=== PATIENT | male | born 1960 | race Caucasian/White ===

== ENCOUNTER 2017-05-21 13:20 | Outpatient (CLI) | payer BC, MEDICARE | END 2017-05-21 13:21 | disposition home or self-care (01) | LOC: BURLAB 13:20 | PROVIDERS: ATTEND Internal Medicine Gastroenterology | DX: R63.4 Abnormal weight loss (principal) | CPT/HCPCS: 36415; 82565 ==

== ENCOUNTER 2017-05-25 07:53 | Outpatient (CLI) | payer BC, MEDICARE ==
--- NOTE | 2017-05-25 22:52 | CT ---
CT ABDOMEN AND PELVIS WITH CONTRAST 05/25/[address] of the abdomen and pelvis was performed and compared with the prior study of 11/08/16 done at [facility]. Axial slices were acquired after giving oral and IV contrast, then coronal and s agittal reconstructions were done afterwards. The lung bases are clear. The liver and spleen were unremarkable in appearance. The pancreas is some what atrophic and contains a few calcifications within it. This could be related to the diagnosis of chronic pancreatitis. The gallbladder wall enhances quite a bit, but no stones were appreciated wit hin it and there is no stranding around the gallbladder. It is somewhat similar in appearance to the prior study. No mass or hydronephrosis was seen in the kidneys. There is some stranding in the owen nephric fat which has been previous on the prior study. The adrenal glands were unremarkable. There is no aneurysm in the aorta, but abundant arteriosclerotic changes are present. The bowel shows no sign of obstruction. No owen-intestinal inflammatory change was seen. There is di verticulosis and perhaps some mild thickening of the bowel wall of the left colon, but this is a mar ginal finding at best. There is no pericolonic stranding to suggest active inflammatory disease. No free air or free fluid was seen. CT of the pelvis showed no pelvic masses, adenopathy, or free fluid. Degenerative changes are presen t in the spine. A grade I spondylolisthesis of L5 on S1 with bilateral spondylolysis is noted. IMPRESSION: 1. No acute abdominal or pelvic findings. No findings to explain the patient's weight loss. 2. Other assorted ancillary findings listed above. POS: HOME
== END 2017-05-25 07:54 | disposition home or self-care (01) ==
LOC: BURCT 07:53
PROVIDERS: ATTEND Internal Medicine Gastroenterology
DX: K86.0 Alcohol-induced chronic pancreatitis (principal); K22.2 Esophageal obstruction; R63.4 Abnormal weight loss
CPT/HCPCS: 74177

== ENCOUNTER 2020-04-13 12:02 | Outpatient (CLI) | payer MEDICARE, BC ==
--- NOTE | 2020-04-13 14:03 | RAD ---
CHEST TWO VIEWS: 04/13/20 Comparison is made with a 04/05/18 study. There is the interval appearance of a 4.7 cm mass-like density in the superior part of the left lower lobe. There is some streaking in the lower parts of the left lung. The right lung seems relatively c lear. No large effusions are seen, though there could be a small amount on the left. The left pulmona ry artery seems slightly prominent in size. The heart is normal in size. IMPRESSION: Interval development of a 4.7 cm mass density in the left lower lobe. Neoplasm is presumed until prov en otherwise. Infection is in the differential, particularly given the findings on a recent abdominal CT scan noting basilar opacities reminiscent of COVID changes. Further workup required. FINDINGS DISCUSSED WITH DR CAMPUZANO @ [id number] ON 04/13/2020. HE WILL FOLLOW UP WITH PATIENT. Code T POS: HOME
== END 2020-04-13 12:03 | disposition home or self-care (01) ==
LOC: BURRAD 12:02
PROVIDERS: ATTEND Internal Medicine Gastroenterology
DX: R04.2 Hemoptysis (principal); J98.4 Other disorders of lung
CPT/HCPCS: 71046

== ENCOUNTER 2020-04-19 09:50 | Outpatient (CLI) | payer MEDICARE, BC ==
--- NOTE | 2020-04-19 19:56 | CT ---
CT OF THE CHEST WITH CONTRAST: 04/19/20 Comparison is made with a 03/19/20 CT of the abdomen and pelvis that showed some of the lower chest. A dditionally, reference is made to a recent chest x-ray done on 04/13/20 which showed a mass density in the left lung. Comparing the subway repair supervisor view of today's CT with the subway repair supervisor of the abdominal CT, one can see that the mass density present in the left lung is a new finding. It was not visible on the 03/19/20 subway repair supervisor, indicatin g that this is most likely of an infectious etiology, rather than a neoplastic one. The patchy ground glass densities seen in the lower lobes on the February study have largely resolved. There is now what is apparently a cavitated lesion in the superior segment of the left lower lobe that measures about 4 .3 cm in size. Streaking radiates out from it. The central part is air filled, perhaps with a small a mount of fluid in it. While there is some very faint patchy densities in each lung otherwise, overall the patchy areas have significantly improved in the interval. There are no effusions. There is no mediastinal mass and surprisingly a minor degree of adenopathy. The largest node was abou t 1.2 cm in size adjacent to the origin of the left main bronchus. An air fluid level is seen in the lower esophagus perhaps with some slight esophageal wall thickening as might be seen in mild esophagi tis. The adrenal glands were unremarkable in appearance. There were no acute changes in the upper abd omen. The left kidney seems smaller than the right. IMPRESSION: 1. Interval development of a 4.3 cm cavitary lesion in the superior segment of the left lower lo be. I presume this to be an abscess and infectious in nature since I cannot see it on the subway repair supervisor film of the February CT. 2. Numerous patchy infiltrates seen elsewhere in both lungs have definitely improved in the inte rval. Code T POS: HOME
== END 2020-04-19 09:51 | disposition home or self-care (01) ==
LOC: BURCT 09:50
PROVIDERS: ATTEND Internal Medicine Pulmonary Disease
DX: Z01.818 Encounter for other preprocedural examination (principal); R22.2 Localized swelling, mass and lump, trunk; J98.4 Other disorders of lung; R91.8 Other nonspecific abnormal finding of lung field
CPT/HCPCS: 36415; 71260; 82565